=== PATIENT | female | born 1955 | race American Indian/Alaskan Native ===

== ENCOUNTER 2017-12-25 13:48 | Outpatient (CLI) | payer OTHER ==
[2017-12-25] MEDS ORDERED: PROVENTIL IH ONE (14:50)
== END 2017-12-25 13:49 | disposition home or self-care (01) ==
LOC: PF 13:48
PROVIDERS: ATTEND Internal Medicine
DX: J44.9 Chronic obstructive pulmonary disease, unspecified (principal); I27.20 Pulmonary hypertension, unspecified
CPT/HCPCS: 94060; 94729